=== PATIENT | male | born 1970 | race Caucasian/White ===

== ENCOUNTER → 2025-05-30 | Outpatient (BNVA) | payer BC, MEDICAID, SELFPAY | END | disposition home or self-care (01) | PROVIDERS: PCP Family Medicine; Referring Provider Family Medicine; Visit Provider Student in an Organized Health Care Education/Training Program | DX: T83.490A Other mechanical complication of implanted penile prosthesis, initial encounter (principal); Y84.9 Medical procedure, unspecified as the cause of abnormal reaction of the patient, or of later complication, without mention of misadventure at the time of the procedure; I11.9 Hypertensive heart disease without heart failure; E78.5 Hyperlipidemia, unspecified | CPT/HCPCS: 99202; G0463 ==